=== PATIENT | male | born 1940 | race Caucasian/White ===

== ENCOUNTER → 2017-12-16 | Outpatient (CLI) | payer MEDICARE ==
[~2017-12-16] MED LIST: ATOR80TA PO; DILT180C63 PO; LOSA100T2 PO; MONT10TA24 PO
[2017-12-16 11:51] LABS: CREATININE 2.1 mg/dL (0.5-1.5)
== END | disposition home or self-care (01) ==
LOC: LAB 11:08
PROVIDERS: ATTEND Urology
DX: R31.29 Other microscopic hematuria (principal); Z87.448 Personal history of other diseases of urinary system
CPT/HCPCS: 36415; 82565; 84520

== ENCOUNTER → 2017-12-20 | Outpatient (CLI) | payer MEDICARE | END | disposition home or self-care (01) | LOC: OIH 07:57 | PROVIDERS: ATTEND Urology | DX: I71.4 Abdominal aortic aneurysm, without rupture (principal); N20.0 Calculus of kidney; N28.1 Cyst of kidney, acquired; K40.20 Bilateral inguinal hernia, without obstruction or gangrene, not specified as recurrent; K57.30 Diverticulosis of large intestine without perforation or abscess without bleeding; I70.0 Atherosclerosis of aorta; Z87.448 Personal history of other diseases of urinary system | CPT/HCPCS: 74176 ==

== ENCOUNTER 2019-12-13 01:44 | Observation (INO) | payer MEDICARE ==
[~2019-12-13] VITALS: Ht 170.2 cm; Wt 106.6 kg
[~2019-12-13 01:44] MED LIST changes: -MONT10TA24 PO; +MONT10TA26 PO
[2019-12-13 02:35] LABS: BASOPHILS % (AUTO) 0.3 % (0.0-5.0); EOSINOPHILS % (AUTO) 0.8 % (0.0-8.0); HEMATOCRIT 40.7 % (42-54); LYMPHOCYTES % (AUTO) 14.7 % (21.0-51.0); MEAN CORPUSCULAR HEMOGLOBIN 32.1 pg (27.0-33.0); MEAN CORPUSCULAR HGB CONC 33.2 g/dL (32.0-36.0); MEAN CORPUSCULAR VOLUME 96.9 fL (79-99); MONOCYTES % (AUTO) 7.2 % (3.0-13.0); NEUTROPHILS % (AUTO) 76.7 % (40.0-77.0); PLATELET COUNT (AUTO) 113 K/uL (130-400); RED CELL DISTRIBUTION WIDTH 13.2 % (11.0-15.5); WHITE BLOOD COUNT (AUTO) 10.7 K/uL (4.8-10.8)
[2019-12-13] MEDS ORDERED: NITROGLYCERIN 1GM/1 INCH PACKET TD ONE ×2 (02:37→16:40)
[2019-12-13] MEDS ORDERED: ASPIRIN 325 MG TABLET ONE (02:38)
[2019-12-13 02:41] LABS: CREATININE 1.6 mg/dL (0.5-1.5); POTASSIUM 4.3 mmol/L (3.5-5.1)
[2019-12-13] MEDS ORDERED: MAG HYDROX/AL HYDROX/SIMETH ES 30 ML SUSP UDCUP ONE (03:47)
[2019-12-13] MEDS ORDERED: SODIUM CHLORIDE 0.9% 1000ML 1,000 ML IV SCH ×2 (04:00→15:19)
[2019-12-13] MEDS ORDERED: NITROGLYCERIN 1GM/1 INCH PACKET TD SCH (04:00)
[2019-12-13] MEDS ORDERED: HYOSCYAMINE SULFATE 0.125 MG TAB.SUBL SL ONE (04:37)
[2019-12-13] MEDS ORDERED: SODIUM CHLORIDE 0.9% 1000ML 1,000 ML IV ONE (05:17)
[2019-12-13] MEDS: NITROGLYCERIN 1GM/1 INCH PACKET TD SCH ×3 (06:30→21:57)
[2019-12-13 07:29] LABS: CREATINE KINASE, TOTAL 123 U/L (21-232); MYOGLOBIN 90 ng/mL (10-92); TROPONIN I < 0.04 ng/mL (0.00-0.06)
[2019-12-13] MEDS ORDERED: FAMO20TA8 PO (08:48)
[2019-12-13] MEDS ORDERED: NEBI5TAB8 PO (08:48)
[2019-12-13] MEDS ORDERED: NITR0.4T SL (08:48)
[2019-12-13] MEDS ORDERED: KETOROLAC TROMETHAMINE 60 MG/2 ML VIAL ONE (08:51)
[2019-12-13] MEDS ORDERED: PANTOPRAZOLE SODIUM 40 MG TABLET.DR ONE (08:51)
[2019-12-13] MEDS: ASPIRIN 325 MG TABLET PO SCH (09:00)
[2019-12-13] MEDS ORDERED: MORPHINE SULFATE 2 MG/ML 1ML SYG IVP PRN (09:30)
--- NOTE | 2019-12-13 10:47 | NUR ---
INTIAL Patient lives with spouse, Pamela Valle, [phone]. no home services. DME: [facility] Patient is able to complete ADL's and drives. PCP is Dr. La Cerna. Pharmacy is [facility] located in [place]. DCP is home. Addendum: 12/13/19 at 1051 by JEANNE TA SS Amended: Links added.
[2019-12-13] MEDS ORDERED: REGADENOSON 0.4 MG/5 ML PF SYG IVP SCH (11:15)
[2019-12-13] MEDS ORDERED: ACETAMINOPHEN 325 MG TAB PO PRN ×2 (15:30)
[2019-12-13] MEDS: METRONIDAZOLE 500MG/100ML BAG 100 ML IV SCH ×2 (15:30→21:57)
[2019-12-13] MEDS ORDERED: ONDANSETRON HCL 4 MG/2 ML VIAL IV PRN (15:30)
[2019-12-13] MEDS ORDERED: MAG HYDROX/AL HYDROX/SIMETH ES 30 ML SUSP UDCUP PO PRN (15:30)
[2019-12-13] MEDS ORDERED: DIPHENHYDRAMINE HCL 25 MG CAPSULE PO PRN (15:30)
[2019-12-13] MEDS ORDERED: LACTULOSE 20 GM/30 ML UDCUP PO PRN (15:30)
[2019-12-13] MEDS ORDERED: ACETAMINOPHEN-CODEINE 300/30MG TAB PO PRN (15:30)
[2019-12-13] MEDS ORDERED: DiphenhydrAMINE HCL 50 MG/ML VIAL IV PRN (15:30)
[2019-12-13] MEDS ORDERED: LIDOCAINE HCL-MPF 1% 2ML VIAL IJ PRN (16:15)
[2019-12-13] MEDS ORDERED: POTASSIUM CHLORIDE 20 MEQ ERTAB PO PRN (16:15)
[2019-12-13] MEDS ORDERED: POTASSIUM CHLORIDE 10% ELIXIR 20 MEQ/15 ML UDCUP PO PRN (16:15)
[2019-12-13] MEDS ORDERED: POTASSIUM CHLORIDE 20MEQ/100ML 100 ML IV PRN (16:15)
[2019-12-13 16:34] LABS: CREATINE KINASE, TOTAL 106 U/L (21-232); MYOGLOBIN 145 ng/mL (10-92); TROPONIN I < 0.04 ng/mL (0.00-0.06)
[2019-12-13] MEDS ORDERED: METRONIDAZOLE 500MG/100ML BAG 100 ML ONE (16:40)
[2019-12-13 17:30] VITALS: BP 153/74
--- NOTE | 2019-12-13 18:00 | NUR ---
ER ADMIT TO 316, AAO X 3, ASSESSMENT DONE, ADMISSION DATABASE COLLECTED BY Case CORRAL RN. NS INFUSING AT 100 ML/HR, 29 G RT. HAND. NO C/O OF ABD. PAIN AT THIS TIME.
[2019-12-13 19:00] VITALS: BP 149/76
[2019-12-13] MEDS: CEFTRIAXONE SODIUM 1 GM IV SCH (21:53)
[2019-12-14] VITALS: BP 157/75
[2019-12-14] MEDS: NITROGLYCERIN 1GM/1 INCH PACKET TD SCH ×3 (00:30→13:00)
[2019-12-14 04:00] VITALS: BP 117/54
[2019-12-14 06:13] LABS: HEMATOCRIT 37.3 % (42-54); MEAN CORPUSCULAR HEMOGLOBIN 31.5 pg (27.0-33.0); MEAN CORPUSCULAR VOLUME 95.6 fL (79-99); PLATELET COUNT (AUTO) 155 K/uL (130-400); RED CELL DISTRIBUTION WIDTH 13.4 % (11.0-15.5); WHITE BLOOD COUNT (AUTO) 12.8 K/uL (4.8-10.8)
[2019-12-14 06:24] LABS: CREATININE 1.3 mg/dL (0.5-1.5); POTASSIUM 3.6 mmol/L (3.5-5.1)
[2019-12-14 07:00] VITALS: BP 158/60
[2019-12-14] MEDS ORDERED: ATOR-2 PO (08:30)
[2019-12-14] MEDS ORDERED: MONT10TA26 PO (08:30)
[2019-12-14] MEDS ORDERED: NITR0.4T SL (08:30)
[2019-12-14] MEDS ORDERED: NEBI5TAB8 PO (08:30)
[2019-12-14] MEDS ORDERED: LOSA100T58 PO (08:30)
[2019-12-14] MEDS ORDERED: DILT180C89 PO (08:30)
[2019-12-14] MEDS ORDERED: FAMO20TA8 PO (08:30)
[2019-12-14] MEDS ORDERED: DILTIAZEM HCL 180 MG CAP.SR.24H PO SCH (08:45)
[2019-12-14] MEDS ORDERED: TAMS-1 PO (08:48)
--- NOTE | 2019-12-14 08:49 | NUR ---
[id number]. DENIES PAIN. SEEN BY DR. MELGOZA. NEW ORDERS NOTED AND INITIATED. STABLE.
[2019-12-14] MEDS: ASPIRIN 325 MG TABLET PO SCH (08:54)
[2019-12-14] MEDS ORDERED: FAMOTIDINE 20MG TAB 20 MG TAB PO SCH (09:00)
[2019-12-14] MEDS ORDERED: ENOXAPARIN SODIUM 30 MG/0.3 ML SQ SCH (09:00)
[2019-12-14] MEDS ORDERED: PANTOPRAZOLE SODIUM 40 MG TABLET.DR PO SCH (09:00)
[2019-12-14 11:00] VITALS: BP 131/58
--- NOTE | 2019-12-14 14:11 | NUR ---
[id number] patient signed GARCIA Letter, I faxed GARCIA Letter to [phone] and placed in chart under consent tab
[2019-12-14] MEDS: CEFTRIAXONE SODIUM 1 GM IV SCH (14:46)
== END 2019-12-14 18:30 | disposition home or self-care (01) ==
LOC: EDH 01:44 → EDHIP 03:30 → 3CH 17:30
PROVIDERS: ADMIT Internal Medicine; ATTEND Internal Medicine
DX: R07.89 Other chest pain (principal); N20.0 Calculus of kidney; K80.20 Calculus of gallbladder without cholecystitis without obstruction; I25.110 Atherosclerotic heart disease of native coronary artery with unstable angina pectoris; I13.10 Hypertensive heart and chronic kidney disease without heart failure, with stage 1 through stage 4 chronic kidney disease, or unspecified chronic kidney disease; N18.3 Chronic kidney disease, stage 3 (moderate); E78.2 Mixed hyperlipidemia; K21.9 Gastro-esophageal reflux disease without esophagitis; E66.01 Morbid (severe) obesity due to excess calories; E78.00 Pure hypercholesterolemia, unspecified; I65.23 Occlusion and stenosis of bilateral carotid arteries; I70.0 Atherosclerosis of aorta; Z95.1 Presence of aortocoronary bypass graft; Z96.0 Presence of urogenital implants; Z87.442 Personal history of urinary calculi; Z87.448 Personal history of other diseases of urinary system; Z79.899 Other long term (current) drug therapy; Z68.41 Body mass index [BMI] 40.0-44.9, adult
CPT/HCPCS: 36415 ×2; 71045; 74176; 78452; 80048 ×2; 82550 ×2; 82948; 83874 ×2; 84484 ×3; 85025; 85027; 93005; 93017; 96372; 96374; 96376; 99285; A9500 ×2; G0378 ×26; J0696 ×2; J1650; J1885; J2785; J3490 ×2; J7030

== ENCOUNTER → 2021-05-22 | Outpatient (CLI) | payer MEDICARE ==
[~2021-05-22] MED LIST changes: +ATOR-2 PO; -ATOR80TA PO; -DILT180C63 PO; +DILT180C89 PO; +FAMO20TA8 PO; -LOSA100T2 PO; +LOSA100T58 PO; -MONT10TA26 PO; +MONT10TA32 PO; +NEBI5TAB8 PO; +NITR0.4T SL; +TAMS-1 PO
== END | disposition home or self-care (01) ==
LOC: OIH 08:30
PROVIDERS: ATTEND Internal Medicine
DX: N20.0 Calculus of kidney (principal); N28.1 Cyst of kidney, acquired; K57.30 Diverticulosis of large intestine without perforation or abscess without bleeding; I70.0 Atherosclerosis of aorta; M95.8 Other specified acquired deformities of musculoskeletal system; R53.83 Other fatigue; R06.02 Shortness of breath; R63.4 Abnormal weight loss; Z90.49 Acquired absence of other specified parts of digestive tract
CPT/HCPCS: 71046; 74176

== ENCOUNTER → 2021-06-03 | Outpatient (CLI) | payer MEDICARE ==
[~2021-06-03] MED LIST changes: +IOHEXOL 350 MG/ML 100ML INFUS..BTL IV ONE
== END | disposition home or self-care (01) ==
LOC: OIH 08:10
PROVIDERS: ATTEND Internal Medicine
DX: N20.0 Calculus of kidney (principal)
CPT/HCPCS: 74177; Q9967

== ENCOUNTER 2021-07-03 06:50 | Day surgery (SDC) | payer MEDICARE ==
[2021-07-01 16:20] LABS: BASOPHILS % (AUTO) 0.3 % (0.0-5.0); HEMATOCRIT 35.9 % (42-54); LYMPHOCYTES % (AUTO) 22.2 % (21.0-51.0); MEAN CORPUSCULAR HEMOGLOBIN 31.3 pg (27.0-33.0); MEAN CORPUSCULAR HGB CONC 32.3 g/dL (32.0-36.0); MEAN CORPUSCULAR VOLUME 96.8 fL (79-99); MONOCYTES % (AUTO) 7.4 % (3.0-13.0); PLATELET COUNT (AUTO) 212 K/uL (130-400); RED BLOOD CELL COUNT(AUTO) 3.71 MIL/uL (4.50-6.20); WHITE BLOOD COUNT (AUTO) 6.7 K/uL (4.8-10.8)
[2021-07-01 16:35] LABS: INR 1.03 (0.85-1.15); PROTHROMBIN TIME 11.2 SEC (9.6-11.6)
[2021-07-01 16:36] LABS: PARTIAL THROMBOPLASTIN TIME 24.5 SEC (26.3-35.5)
[2021-07-01 16:55] LABS: CREATININE 0.9 mg/dL (0.5-1.5); POTASSIUM 3.8 mmol/L (3.5-5.1)
[2021-07-02 11:11] VITALS: BP 149/67
[~2021-07-03] VITALS: Ht 172.7 cm; Wt 96.1 kg
[~2021-07-03 06:50] MED LIST changes: -IOHEXOL 350 MG/ML 100ML INFUS..BTL IV ONE; +MONT-39 PO; -MONT10TA32 PO
[2021-07-03 07:40] VITALS: BP 127/61
[2021-07-03] MEDS ORDERED: 0.9%NACL 1000ML 1,000 ML IV ONE (07:46)
[2021-07-03] MEDS ORDERED: IOHEXOL-350 75 ML VIAL IV ONE (11:08)
== END 2021-07-03 13:41 | disposition home or self-care (01) ==
LOC: DAH 06:50
PROVIDERS: ATTEND Surgery
DX: L02.211 Cutaneous abscess of abdominal wall (principal); Z20.822 Contact with and (suspected) exposure to COVID-19; I10 Essential (primary) hypertension; E78.5 Hyperlipidemia, unspecified; I25.10 Atherosclerotic heart disease of native coronary artery without angina pectoris; K21.9 Gastro-esophageal reflux disease without esophagitis; E78.00 Pure hypercholesterolemia, unspecified; Z80.1 Family history of malignant neoplasm of trachea, bronchus and lung; Z80.8 Family history of malignant neoplasm of other organs or systems; Z98.890 Other specified postprocedural states; Z90.49 Acquired absence of other specified parts of digestive tract; Z79.01 Long term (current) use of anticoagulants
CPT/HCPCS: 36415; 49424; 74160; 80048; 85025; 85610; 85730; A4215; A4216; A4221; A4222; A4223 ×3; A4606; A4663; J7030; Q9967

== ENCOUNTER → 2021-07-17 | Outpatient (CLI) | payer MEDICARE ==
[~2021-07-17] MED LIST changes: +IOHEXOL-350 75 ML VIAL IV ONE; -MONT-39 PO; +MONT10TA32 PO
[2021-07-17 09:43] LABS: BILIRUBIN,TOTAL 0.5 mg/dL (0.2-1.0); CREATININE 0.9 mg/dL (0.5-1.5); POTASSIUM 4.6 mmol/L (3.5-5.1); TOTAL PROTEIN, SERUM 6.9 g/dL (6.0-8.3)
[2021-07-17 10:56] LABS: HEMATOCRIT 38.5 % (42-54); MEAN CORPUSCULAR HEMOGLOBIN 31.8 pg (27.0-33.0); MEAN CORPUSCULAR HGB CONC 32.5 g/dL (32.0-36.0); PLATELET COUNT (AUTO) 134 K/uL (130-400); RED BLOOD CELL COUNT(AUTO) 3.93 MIL/uL (4.50-6.20); WHITE BLOOD COUNT (AUTO) 5.7 K/uL (4.8-10.8)
[2021-07-17 11:03] LABS: INR 1.05 (0.85-1.15); PROTHROMBIN TIME 11.4 SEC (9.6-11.6)
[2021-07-17 11:04] LABS: PARTIAL THROMBOPLASTIN TIME 21.5 SEC (26.3-35.5)
[2021-07-17 11:43] LABS: LYMPHOCYTES % (MANUAL) 26 % (22-44); MAN.DIFF COMMENT-IMPRESSION MANUAL DIFFERENTIAL; MONOCYTES % (MANUAL) 10 % (2-9); PLATELET MORPHOLOGY COMMENT ADEQUATE; SEGMENTED NEUTROPHILS % 64 % (40-70)
== END | disposition home or self-care (01) ==
LOC: RAH 07:26 → EDSTATUS 08:00
PROVIDERS: ATTEND Physician Assistant
DX: K42.9 Umbilical hernia without obstruction or gangrene (principal); J98.11 Atelectasis; K76.89 Other specified diseases of liver; N28.1 Cyst of kidney, acquired; N40.0 Benign prostatic hyperplasia without lower urinary tract symptoms; I70.0 Atherosclerosis of aorta; L02.211 Cutaneous abscess of abdominal wall; Z90.49 Acquired absence of other specified parts of digestive tract
CPT/HCPCS: 36415; 74177; 80053; 85025; 85610; 85730; Q9967

== ENCOUNTER → 2022-06-30 | Outpatient (CLI) | payer MEDICARE ==
[~2022-06-30] MED LIST changes: -IOHEXOL-350 75 ML VIAL IV ONE; +MONT-39 PO; -MONT10TA32 PO
[2022-06-30 12:46] LABS: CHOLESTEROL 125 mg/dL (<200); HDL CHOLESTEROL 40 mg/dL (29-71); LDL DIRECT 72 mg/dL (0-99); TRIGLYCERIDES 108 mg/dL (30-200)
== END | disposition home or self-care (01) ==
LOC: LAB 09:47
PROVIDERS: ATTEND Internal Medicine Cardiovascular Disease
DX: E78.5 Hyperlipidemia, unspecified (principal)
CPT/HCPCS: 36415; 80061

== ENCOUNTER → 2023-04-14 | Outpatient (CLI) | payer MEDICARE ==
[~2023-04-14] MED LIST changes: -LOSA100T58 PO; +LOSA100T59 PO
== END | disposition home or self-care (01) ==
LOC: RAH 14:14
PROVIDERS: ATTEND Internal Medicine
DX: I65.23 Occlusion and stenosis of bilateral carotid arteries (principal); I77.89 Other specified disorders of arteries and arterioles; I25.10 Atherosclerotic heart disease of native coronary artery without angina pectoris
CPT/HCPCS: 93880

== ENCOUNTER → 2023-11-09 | Outpatient (CLI) | payer MEDICARE ==
[~2023-11-09] MED LIST changes: +NEBI5TAB PO; -NEBI5TAB8 PO
== END | disposition home or self-care (01) ==
LOC: SHCH 08:18
PROVIDERS: ATTEND Internal Medicine Cardiovascular Disease
DX: I35.1 Nonrheumatic aortic (valve) insufficiency (principal); R06.00 Dyspnea, unspecified; I10 Essential (primary) hypertension; E78.5 Hyperlipidemia, unspecified
CPT/HCPCS: 93306

== ENCOUNTER → 2023-11-12 | Outpatient (CLI) | payer MEDICARE ==
[~2023-11-12] MED LIST changes: +REGADENOSON 0.4 MG/5 ML PF SYG IVP ONE
== END | disposition home or self-care (01) ==
LOC: SHCH 07:33
PROVIDERS: ATTEND Internal Medicine Cardiovascular Disease
DX: I25.10 Atherosclerotic heart disease of native coronary artery without angina pectoris (principal); I25.9 Chronic ischemic heart disease, unspecified
CPT/HCPCS: 78452; 96374; 93017; J2785; A9500 ×2